=== PATIENT | male | born 2000 | race Caucasian/White ===

== ENCOUNTER 2020-04-22 18:57 | Emergency (ER) | payer MEDICAID ==
[~2020-04-22] VITALS: Ht 170.2 cm; Wt 86.4 kg
[2020-04-22 19:02] VITALS: Ht 170.2 cm; Wt 86.4 kg
[2020-04-22] MEDS ORDERED: BACTRIM 400-801 TAB PO (19:41)
[2020-04-22 21:01] VITALS: BP 148/77
== END 2020-04-22 20:51 | disposition home or self-care (01) ==
LOC: D.ER 18:57
DX: L03.317 Cellulitis of buttock (principal)